=== PATIENT | male | born 1990 | race African-American/Black ===

== ENCOUNTER 2020-03-28 07:53 | Emergency (ER) | payer SELFPAY ==
--- NOTE | 2020-03-28 08:26 | ER Document Report ---
ED Syncope and Near Syncope - General Stated Complaint: POSSIBLE SYNCOPE Time Seen by Provider: 03/28/20 08:15 Notes: CHIEF COMPLAINT: Syncopal episode this morning HPI: 29-year-old male who is otherwise healthy presenting for syncopal episode this morning. Patient was waiting outside in the cold for extended period this morning waiting on a ride to go to work, stood up quickly and states that he passed out. States that he woke up on the ground with people around him. No seizure activity no incontinence. Denies any complaints physically at this time. Patient believes he just stood up too quickly. States this is not happened to him before. Denies shortness of breath or chest pain. Denies headache or other injury. ROS: See HPI - all other systems were reviewed and are otherwise negative Constitutional: no fever Eyes: no drainage, no blurred vision ENT: no runny nose, no sore throat Cardiovascular: no chest pain Resp: no SOB, no cough GI: no vomiting, no diarrhea, no abdominal pain : no dysuria Integumentary: no rash Allergy: no hives Musculoskeletal: no extremity pain or swelling Neurological: no numbness/tingling, no weakness MEDICATIONS: I agree with the patient medications as charted by the RN. ALLERGIES: I agree with the allergies as charted by the RN. PAST MEDICAL HISTORY/PAST SURGICAL HISTORY: Reviewed and agree as charted by RN. SOCIAL HISTORY: Reviewed and agree as charted by RN. FAMILY HISTORY: No significant familial comorbid conditions directly related to patient complaint EXAM: Reviewed vital signs as charted by RN. CONSTITUTIONAL: Alert and oriented and responds appropriately to questions. Well-appearing; well-nourished HEAD: Normocephalic; atraumatic EYES: PERRL; Conjunctivae clear, sclerae non-icteric ENT: normal nose; no rhinorrhea; moist mucous membranes; pharynx without lesions noted, no uvula edema or deviation, no tonsillar hypertrophy, phonation normal NECK: Supple without meningismus; non-tender; no cervical lymphadenopathy, no masses CARD: RRR; no murmurs, no clicks, no rubs, no gallops; symmetric distal pulses RESP: Normal chest excursion without splinting or tachypnea; breath sounds clear and equal bilaterally; no wheezes, no rhonchi, no rales, pulse oximetry 99% on room air not hypoxic ABD/GI: Normal bowel sounds; non-distended; soft, non-tender, no rebound, no guarding; no palpable organomegaly or masses. BACK: The back appears normal and is non-tender to palpation, there is no CVA tenderness EXT: Normal ROM in all joints; non-tender to palpation; no cyanosis, no effusions, no edema SKIN: Normal color for age and race; warm; dry; good turgor; no acute lesions noted NEURO: Moves all extremities equally; Motor and sensory function intact PSYCH: The patient's mood and manner are appropriate. Grooming and personal hygiene are appropriate. MDM: 29-year-old male presenting for what is likely a vasovagal type episode. Patient was sitting outside in the cold for an extended period then stood up quickly and passed out for approximately a minute but had no incontinence or shaking suggesting a seizure. He has no physical complaints at this time no pleuritic pain no chest pain no shortness of breath suggesting PE or ACS. Will obtain baseline screening labs EKG and chest x-ray if all are normal anticipate discharge home to follow-up with cardiology. Discussed at length with the patient. Does not completely rule out an arrhythmia but patient has no other risk factors for this. TRAVEL OUTSIDE OF THE [place] IN LAST 30 DAYS: No - Related Data Allergies/Adverse Reactions: No Known Allergies Allergy (Unverified 07/16/14 18:06) Past Medical History - Social History Smoking Status: Unknown if Ever Smoked Family History: Arthritis, CAD, DM, Hyperlipidemia, Hypertension, Malignancy - Immunizations Immunizations up to date: Yes Hx Diphtheria, Pertussis, Tetanus Vaccination: Yes - 2009 Physical Exam - Vital signs Vitals: Temp Pulse Resp BP Pulse Ox 98.7 F 63 20 150/90 H 100 03/28/20 08:00 03/28/20 08:00 03/28/20 08:00 03/28/20 08:00 03/28/20 08:00 Course - Re-evaluation Re-evalutation: 03/28/20 08:45 EKG normal sinus rhythm with a ventricular rate of 74, OK 140, QT 356 QTC 395, normal EKG interpreted by emergency department physicians 03/28/20 09:49 Patient's lab work EKG and chest x-ray are all nonactionable. I believe he had a vasovagal type syncope. I will still refer the patient to cardiology for outpatient evaluation. Patient is asymptomatic at this time, her symptoms specifically occurred when he stood up quickly after sitting in the cold for a long period. - Vital Signs Vital signs: Temp Pulse Resp BP Pulse Ox 98.7 F 63 20 150/90 H 100 03/28/20 08:00 03/28/20 08:00 03/28/20 08:00 03/28/20 08:00 03/28/20 08:00 - Laboratory Results Result Diagrams: 03/28/20 09:00 03/28/20 09:00 Laboratory Results Interpreted: 03/28/20 03/28/20 08:51 09:00 Carbon Dioxide 31 H BUN 6 L Glucose 129 H POC Glucose 120 H ALT 79 H Total Protein 8.3 H Critical Laboratory Results Reviewed: No Critical Results - Radiology Results Critical Radiology Results Reviewed: No Critical Results Discharge - Discharge Clinical Impression: Syncope Qualifiers: Syncope type: vasovagal syncope Qualified Code(s): R55 - Syncope and collapse Condition: Stable Disposition: HOME, SELF-CARE Instructions: Syncopal Episode ([facility]) Additional Instructions: Follow-up outpatient with cardiology for further evaluation of your syncopal episode, call for appointment. Make sure that when you are changing position to do so slowly. Hydrate well at home. If you have any recurrent problems please return for reevaluation. Referrals: MERI DALEY MD [ACTIVE PROVISIONAL STAFF] - Follow up as needed
--- NOTE | 2020-03-28 08:42 | RADIOLOGY REPORT (SQ) ---
EXAM DESCRIPTION: CHEST 2 VIEWS IMAGES COMPLETED DATE/TIME: 03/28/2020 8:31 am REASON FOR STUDY: syncope COMPARISON: 07/16/2014. EXAM PARAMETERS: NUMBER OF VIEWS: two views TECHNIQUE: Digital Frontal and Lateral radiographic views of the chest acquired. RADIATION DOSE: NA LIMITATIONS: none FINDINGS: LUNGS AND PLEURA: No opacities, masses or pneumothorax. No pleural effusion. MEDIASTINUM AND HILAR STRUCTURES: No masses or contour abnormalities. HEART AND VASCULAR STRUCTURES: Heart normal size. No evidence for failure. BONES: No acute findings. HARDWARE: None in the chest. OTHER: No other significant finding. IMPRESSION: NO ACUTE RADIOGRAPHIC FINDING IN THE CHEST. TECHNICAL DOCUMENTATION: JOB ID: [id number] 2010 [employer]- All Rights Reserved Reading location - IP/workstation name: [email or web address]
--- NOTE | 2020-03-28 08:54 | EKG REPORT ---
SEVERITY:- NORMAL ECG - SINUS RHYTHM : Confirmed by: Jv Beck MD 28-Mar-2020 08:53:15
[2020-03-28 09:16] LABS: ABSOLUTE BASOPHILS # (AUTO) 0.1 10^3/uL (0.0-0.2); ABSOLUTE EOSINOPHILS # (AUTO) 0.1 10^3/uL (0.0-0.6); ABSOLUTE LYMPHOCYTES (AUTO) 1.8 10^3/uL (0.5-4.7); ABSOLUTE MONOCYTES (AUTO) 0.3 10^3/uL (0.1-1.4); EOSINOPHILS % (AUTO) 0.9 % (0-6); HEMATOCRIT 42.6 % (37.9-51.0); HEMOGLOBIN 14.1 g/dL (13.5-17.0); LYMPHOCYTES % (AUTO) 29.1 % (13-45); MEAN CORPUSCULAR HEMOGLOBIN 28.2 pg (27.0-33.4); MEAN CORPUSCULAR HGB CONC 33.1 g/dL (32.0-36.0); MEAN CORPUSCULAR VOLUME 85 fl (80-97); MONOCYTES % (AUTO) 5.2 % (3-13); PLATELET COUNT 347 10^3/uL (150-450); RED CELL DISTRIBUTION WIDTH 13.9 % (11.5-14.0); SEGMENTED NEUTROPHILS % (AUTO) 63.8 % (42-78); TOTAL CELLS COUNTED % (AUTO) 100 %; WHITE BLOOD COUNT 6.2 10^3/uL (4.0-10.5)
[2020-03-28 09:35] LABS: ALBUMIN 4.6 g/dL (3.5-5.0); ALKALINE PHOSPHATASE 84 U/L (38-126); ANION GAP 6 (5-19); ASPARTATE AMINO TRANSFERASE 46 U/L (17-59); BILIRUBIN,DIRECT 0.2 mg/dL (0.0-0.4); BILIRUBIN,TOTAL 0.5 mg/dL (0.2-1.3); BLOOD UREA NITROGEN 6 mg/dL (7-20); CALCIUM 9.7 mg/dL (8.4-10.2); CARBON DIOXIDE 31 mmol/L (22-30); CHLORIDE 103 mmol/L (98-107); GLUCOSE 129 mg/dL (75-110); POTASSIUM 4.5 mmol/L (3.6-5.0); TOTAL PROTEIN 8.3 g/dL (6.3-8.2)
[2020-03-28 10:08] VITALS: BP 148/82
== END 2020-03-28 10:07 | disposition home or self-care (01) ==
LOC: ER 07:53
DX: R55 Syncope and collapse (principal)
CPT/HCPCS: 36415; 71046; 80053; 82962; 84484; 85025; 93005; 93010; 99285

== ENCOUNTER 2020-04-01 08:23 | Emergency (ER) | payer SELFPAY ==
--- NOTE | 2020-04-01 09:34 | RADIOLOGY REPORT (SQ) ---
EXAM DESCRIPTION: CT HEAD WITHOUT IMAGES COMPLETED DATE/TIME: 04/01/2020 9:08 am REASON FOR STUDY: Head injury 03/28/20, postconcussion syndrome COMPARISON: None. TECHNIQUE: Axial images acquired through the brain without intravenous contrast. Images reviewed wi th bone, brain and subdural windows. Additional sagittal and coronal reconstructions were generated. Images stored on PACS. All CT scanners at this facility use dose modulation, iterative reconstruction, and/or weight based d osing when appropriate to reduce radiation dose to as low as reasonably achievable (ALARA). [facility]: Dose Right [facility]: CareDose [facility]: Dose Right [facility]: Teradose 4D [facility]: [employer] RADIATION DOSE: CT Rad equipment meets quality standard of care and radiation dose reduction techniq ues were employed. CTDIvol: 53.2 mGy. DLP: 937 mGy-cm. mGy. LIMITATIONS: Streak artifact on some of the images through the skullbase and posterior fossa FINDINGS: VENTRICLES: Normal size and contour. CEREBRUM: No masses. No hemorrhage. No midline shift. No evidence for acute infarction. Normal gra y/white matter differentiation. No areas of low density in the white matter. CEREBELLUM: No masses. No hemorrhage. No alteration of density. No evidence for acute infarction. EXTRAAXIAL SPACES: No fluid collections. No masses. ORBITS AND GLOBE: No intra- or extraconal masses. Normal contour of globe without masses. CALVARIUM: No fracture. PARANASAL SINUSES: No fluid or mucosal thickening. SOFT TISSUES: No mass or hematoma. OTHER: No other significant finding. IMPRESSION: Streak artifact. Limited negative study EVIDENCE OF ACUTE STROKE: NO. COMMENT: Quality ID # [id number]: Final reports with documentation of one or more dose reduction techniques (e.g., Automated exposure control, adjustment of the mA and/or kV according to patient size, use of iterative reconstruction technique) TECHNICAL DOCUMENTATION: JOB ID: [id number] 2010 [employer]- All Rights Reserved Reading location - IP/workstation name: [email or web address]
--- NOTE | 2020-04-01 09:45 | ER Document Report ---
Entered by JONATHAN WILSON SCRIBE 04/01/20 0846 Acting as scribe for:CYNTHIA MAE MD ED General - General Chief Complaint: Head Injury Stated Complaint: FALL/HEAD INJURY Time Seen by Provider: 04/01/20 08:44 Mode of Arrival: Ambulatory Information source: Patient Notes: This 29 year old male patient with no significant past medical history presents to the ED today for evaluation of frontal headaches following a head injury that occurred x4 days ago. Patient states that he had a syncopal episode, fell, and hit the right side of his head on the ground. He did lose consciousness, but duration is unknown. He states that he was dazed when he came to, but became more alert after awhile. He was seen here at that time and discharged with instructions to follow-up with cardiology. He did not have a CT of his head during that visit. He is now reporting headaches since then with pain behind his eyes and shooting pains down the right side of his neck. When asked about associated symptoms such as feeling paranoid, hearing echos, or feeling like his head is in a toilet bowl, patient nods his head in agreement. TRAVEL OUTSIDE OF THE [place] IN LAST 30 DAYS: No - Related Data Allergies/Adverse Reactions: No Known Allergies Allergy (Verified 04/01/20 08:36) Past Medical History - General Information source: Patient - Social History Smoking Status: Never Smoker Cigarette use (# per day): No Chew tobacco use (# tins/day): No Smoking Education Provided: No Frequency of alcohol use: None Drug Abuse: None Family History: Reviewed & Not Pertinent, Arthritis, CAD, DM, Hyperlipidemia, Hypertension, Malignancy - Medical History Medical History: Negative Surgical Hx: Negative - Immunizations Immunizations up to date: Yes Hx Diphtheria, Pertussis, Tetanus Vaccination: Yes - 2009 Review of Systems - Review of Systems Constitutional: No symptoms reported EENT: See HPI, Eye pain Cardiovascular: No symptoms reported Respiratory: No symptoms reported Gastrointestinal: No symptoms reported Genitourinary: No symptoms reported Male Genitourinary: No symptoms reported Musculoskeletal: See HPI, Neck pain Skin: No symptoms reported Hematologic/Lymphatic: No symptoms reported Neurological/Psychological: See HPI, Headaches -: Yes All other systems reviewed and negative Physical Exam - Vital signs Vitals: Temp Pulse Resp BP Pulse Ox 98.0 F 92 18 136/94 H 97 04/01/20 08:28 04/01/20 08:28 04/01/20 08:28 04/01/20 08:28 04/01/20 08:28 - General General appearance: Alert In distress: None - HEENT Head: Normocephalic, Atraumatic. No: Tenderness - Frontal and temporal muscles are not tender to palpation Eyes: Normal Extraocular movements intact: Yes Pupils: PERRL Neck: Other - Right posterior cervical musculature tenderness to palpation. No tenderness noted over the spinous processes - Respiratory Respiratory status: No respiratory distress Chest status: Nontender Breath sounds: Normal Chest palpation: Normal - Cardiovascular Rhythm: Regular Heart sounds: Normal auscultation Murmur: No - Abdominal Inspection: Normal Distension: No distension Bowel sounds: Normal Tenderness: Nontender - Abdomen soft Organomegaly: No organomegaly - Back Back: Normal, Nontender - Extremities General upper extremity: Normal inspection General lower extremity: Normal inspection. No: Edema - Neurological Neuro grossly intact: Yes Orientation: AAOx4 [place] Coma Scale Eye Opening: Spontaneous Fredy Coma Scale Verbal: Oriented Fredy Coma Scale Motor: Obeys Commands [place] Coma Scale Total: 15 - Psychological Associated symptoms: Normal affect, Normal mood - Skin Skin Temperature: Warm Skin Moisture: Dry Skin Color: Normal Course - Vital Signs Vital signs: Temp Pulse Resp BP Pulse Ox 98.0 F 92 18 136/94 H 97 04/01/20 08:28 04/01/20 08:28 04/01/20 08:28 04/01/20 08:28 04/01/20 08:28 - Laboratory Results Critical Laboratory Results Reviewed: No Critical Results - Radiology Results Radiology Results Interpreted: 04/01/20 09:[address] scan of the head is unremarkable. Critical Radiology Results Reviewed: No Critical Results Discharge - Discharge Clinical Impression: Post-concussion syndrome, Strain of cervical portion of right trapezius muscle Condition: Stable Disposition: HOME, SELF-CARE Additional Instructions: Post-Concussion Syndrome: Post-concussion syndrome often follows a mild head injury. Dizziness, mild nausea, mild headache, trouble concentrating, and a general sense of "not being right" may persist for a week or two. This is a frequent complication of concussion. However, if the symptoms worsen, or new symptoms develop, you should be re-examined by the physician. There is no specific cure for post-concussion syndrome. You can take mild pain medication such as ibuprofen or acetaminophen. While you should not drive if you are dizzy, you can get back to your regular activities as quickly as the symptoms will allow. And while vigorous exercise may worsen the headache, mild physical activity often is helpful. Sitting and thinking about your symptoms will worsen them. If difficulties continue, you may need referral for special therapy to help you regain full mental function. Call the physician if you are worsening, or if symptoms are still present in one week. Report any new symptoms immediately. The symptoms you describe in your physical findings suggest what is known as postconcussion syndrome. You also have a strain of the muscles in your right posterior neck related to your fall. Take Tylenol for pain, drink plenty of fluids and get plenty of rest. Follow-up with a local primary care provider if you do not improve over the next 1 to 2 weeks. RETURN TO THE EMERGENCY ROOM IF ANY NEW OR WORSENING SYMPTOMS. Forms: Return to Work I personally performed the services described in the documentation, reviewed and edited the documentation which was dictated to the scribe in my presence, and it accurately records my words and actions.
[2020-04-01 10:09] VITALS: BP 131/83
== END 2020-04-01 10:05 | disposition home or self-care (01) ==
LOC: ER 08:23
DX: S29.012A Strain of muscle and tendon of back wall of thorax, initial encounter (principal); M54.2 Cervicalgia; F07.81 Postconcussional syndrome; W19.XXXA Unspecified fall, initial encounter; Y99.0 Civilian activity done for income or pay
CPT/HCPCS: 70450; 99284